=== PATIENT | female | born 1995 | race Caucasian/White ===

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

== ENCOUNTER 2017-09-22 18:47 | Emergency (ER) | payer OTHER ==
[2017-09-22 19:01] VITALS: RESP 18
[2017-09-22] MEDS ORDERED: SODIUM CHLORIDE 0.9% 1,000 ML IV STA (19:44)
[2017-09-22] MEDS ORDERED: ONDANSETRON 4 MG/2 ML VIAL IVP STA (19:44)
--- NOTE | 2017-09-22 19:49 | ED ---
Nausea/Vomiting/Diarrhea HPI - General Chief complaint: Nausea/Vomiting/Diarrhea Stated complaint: nausea, dizziness Time Seen by Provider: 09/22/17 19:23 Source: patient, RN notes reviewed, old records reviewed Mode of arrival: ambulatory Limitations: no limitations - History of Present Illness Initial comments: 22-year-old female presents emergency Department chief complaint of nausea and dizziness. Patient is a mild abdominal pain. Patient is also concerned that her IUD was not placed. She could not feel the strings. Denies any fevers or chills. No other symptoms. No actual vomiting episodes.Patient denies any recent fever, chills, shortness of breath, chest pain, back pain, vomiting, numbness or tingling, dysuria or hematuria, constipation or diarrhea, headaches or visual changes, or any other current symptoms - Related Data Home Medications Medication Instructions Recorded Confirmed Pnv,Calcium 72/Iron/Folic Acid 1 tab PO DAILY 05/05/16 12/06/16 [ Plus Tablet] Previous Rx's Medication Instructions Recorded Acetaminophen-Codeine 300-30mg 1 - 2 each PO Q4HR PRN #40 tab 12/09/16 [Tylenol w/codeine #3] Ibuprofen [Motrin] 600 mg PO Q6HR PRN #40 tab 12/09/16 Ondansetron Odt [Zofran Odt] 4 mg PO Q8HR PRN #12 tab 09/22/17 Allergies Allergy/AdvReac Type Severity Reaction Status Date / Time Sulfa (Sulfonamide Allergy Rash/Hives Verified 09/22/17 19:01 Antibiotics) sulfamethoxazole Allergy Rash/Hives Verified 09/22/17 19:01 [From Bactrim] trimethoprim [From Bactrim] Allergy Rash/Hives Verified 09/22/17 19:01 Review of Systems ROS Statement: Those systems with pertinent positive or pertinent negative responses have been documented in the HPI. ROS Other: All systems not noted in ROS Statement are negative. 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 Alert and oriented. No acute distress. Limitations: no limitations General appearance: alert, in no apparent distress Head exam: Present: atraumatic, normocephalic, normal inspection Eye exam: Present: normal appearance, PERRL, EOMI. Absent: scleral icterus, conjunctival injection, periorbital swelling ENT exam: Present: normal exam, mucous membranes moist Neck exam: Present: normal inspection. Absent: tenderness, meningismus, lymphadenopathy Respiratory exam: Present: normal lung sounds bilaterally. Absent: respiratory distress, wheezes, rales, rhonchi, stridor Cardiovascular Exam: Present: regular rate, normal rhythm, normal heart sounds. Absent: systolic murmur, diastolic murmur, rubs, gallop, clicks GI/Abdominal exam: Present: soft, normal bowel sounds. Absent: distended, tenderness, guarding, rebound, rigid External exam: Present: normal external exam Speculum exam: Present: normal speculum exam (IUD strings are in place.). Absent: vaginal discharge By manual exam: Present: normal by manual exam Extremities exam: Present: normal inspection, full ROM, normal capillary refill. Absent: tenderness, pedal edema, joint swelling, calf tenderness Back exam: Present: normal inspection Neurological exam: Present: alert, oriented X3, CN II-XII intact Psychiatric exam: Present: normal affect, normal mood Skin exam: Present: warm, dry, intact, normal color. Absent: rash Course Vital Signs 09/22/17 18:59 Temperature 98.1 F Pulse Rate 90 Respiratory 18 Rate Blood Pressure 103/61 O2 Sat by Pulse 97 Oximetry Medical Decision Making - Medical Decision Making 22-year-old Female presents emergency Department with a chief complaint of nausea and dizziness. Patient has no chest pain or symptoms. No abdominal pain or tenderness also concerned that her IUD is out of place. At this time patient's labwork was reviewed and unremarkable. No tenderness on exam. IUD is in place on pelvic exam. Evidence of strength. - Lab Data Result diagrams: 09/22/17 18:58 09/22/17 18:58 Lab Results 09/22/17 09/22/17 09/22/17 Range/Units 18:58 18:58 18:58 WBC 9.2 (4.0-11.0) k/uL RBC 5.40 (3.80-5.40) m/uL Hgb 15.3 (11.4-16.0) gm/dL Hct 45.5 (34.0-46.0) % MCV 84.4 (80.0-100.0) fL MCH 28.4 (25.0-35.0) pg MCHC 33.6 (31.0-37.0) g/dL RDW 12.4 (11.5-15.5) % Plt Count 296 (150-450) k/uL Neutrophils % 53 % Lymphocytes % 34 % Monocytes % 6 % Eosinophils % 4 % Basophils % 1 % Neutrophils # 4.9 (1.3-7.7) k/uL Lymphocytes # 3.2 (1.0-4.8) k/uL Monocytes # 0.5 (0-1.0) k/uL Eosinophils # 0.4 (0-0.7) k/uL Basophils # 0.1 (0-0.2) k/uL Sodium 141 (137-145) mmol/L Potassium 4.3 (3.5-5.1) mmol/L Chloride 109 H (98-107) mmol/L Carbon Dioxide 23 (22-30) mmol/L Anion Gap 9 mmol/L BUN 12 (7-17) mg/dL Creatinine 0.70 (0.52-1.04) mg/dL Est GFR (CKD-EPI)AfAm >90 (>60 ml/min/1.73 sqM) Est GFR (CKD-EPI)NonAf >90 (>60 ml/min/1.73 sqM) Glucose 85 (74-99) mg/dL Calcium 9.7 (8.4-10.2) mg/dL Total Bilirubin 0.6 (0.2-1.3) mg/dL AST 27 (14-36) U/L ALT 26 (9-52) U/L Alkaline Phosphatase 67 (38-126) U/L Total Protein 7.6 (6.3-8.2) g/dL Albumin 4.6 (3.5-5.0) g/dL Amylase 55 (30-110) U/L Lipase 82 (23-300) U/L Urine Color Urine Appearance (Clear) Urine pH (5.0-8.0) Ur Specific [place] (1.001-1.035) Urine Protein (Negative) Urine Glucose (UA) (Negative) Urine Ketones (Negative) Urine Blood (Negative) Urine Nitrite (Negative) Urine Bilirubin (Negative) Urine Urobilinogen (<2.0) mg/dL Ur Leukocyte Esterase (Negative) Urine HCG, Qual Not Detected (Not Detectd) 09/22/17 Range/Units 18:58 WBC (4.0-11.0) k/uL RBC (3.80-5.40) m/uL Hgb (11.4-16.0) gm/dL Hct (34.0-46.0) % MCV (80.0-100.0) fL MCH (25.0-35.0) pg MCHC (31.0-37.0) g/dL RDW (11.5-15.5) % Plt Count (150-450) k/uL Neutrophils % % Lymphocytes % % Monocytes % % Eosinophils % % Basophils % % Neutrophils # (1.3-7.7) k/uL Lymphocytes # (1.0-4.8) k/uL Monocytes # (0-1.0) k/uL Eosinophils # (0-0.7) k/uL Basophils # (0-0.2) k/uL Sodium (137-145) mmol/L Potassium (3.5-5.1) mmol/L Chloride (98-107) mmol/L Carbon Dioxide (22-30) mmol/L Anion Gap mmol/L BUN (7-17) mg/dL Creatinine (0.52-1.04) mg/dL Est GFR (CKD-EPI)AfAm (>60 ml/min/1.73 sqM) Est GFR (CKD-EPI)NonAf (>60 ml/min/1.73 sqM) Glucose (74-99) mg/dL Calcium (8.4-10.2) mg/dL Total Bilirubin (0.2-1.3) mg/dL AST (14-36) U/L ALT (9-52) U/L Alkaline Phosphatase (38-126) U/L Total Protein (6.3-8.2) g/dL Albumin (3.5-5.0) g/dL Amylase (30-110) U/L Lipase (23-300) U/L Urine Color Yellow Urine Appearance Clear (Clear) Urine pH 5.5 (5.0-8.0) Ur Specific [place] 1.020 (1.001-1.035) Urine Protein Negative (Negative) Urine Glucose (UA) Negative (Negative) Urine Ketones Negative (Negative) Urine Blood Negative (Negative) Urine Nitrite Negative (Negative) Urine Bilirubin Negative (Negative) Urine Urobilinogen <2.0 (<2.0) mg/dL Ur Leukocyte Esterase Negative (Negative) Urine HCG, Qual (Not Detectd) 09/22/17 21:05 EKG performed at [address] [facility] signs regarding with sinus arrhythmia. Ventricular rate of 57 bpm. Was 42 ms. QS ration 86 ms. QT QTc is 412/401 ms. - Radiology Data Radiology results: report reviewed Disposition Clinical Impression: Nausea, Dizziness, IUD (intrauterine device) in place Disposition: HOME SELF-CARE Condition: Good Instructions: Acute Nausea and Vomiting (ED) Additional Instructions: Patient is to rest, remain hydrated. Follow-up with primary care physician. Return to the emergency department if any alarming signs or symptoms occur. Prescriptions: Ondansetron Odt [Zofran Odt] 4 mg PO Q8HR PRN #12 tab PRN Reason: Nausea Is patient prescribed a controlled substance at d/c from ED?: No When asked, does pt state using other controlled substances?: No If prescribed controlled substance>3 days was MAPS reviewed?: No If opioid is for acute pain is fill amount 7 days or less?: No If Rx opioid, was Start Talking consent form obtained?: No Referrals: Asael Montiel DO [Primary Care Provider] - 1-2 days Time of Disposition: 21:06
[2017-09-22 20:04] LABS: Appearance,Urine Clear (Clear); Bilirubin,Urine Negative (Negative); Blood,Urine Negative (Negative); Color,Urine Yellow; Glucose,Urine (UA) Negative (Negative); Ketones,Urine Negative (Negative); Leukocyte Esterase,Urine Negative (Negative); Nitrite,Urine Negative (Negative); PH, Urine 5.5 (5.0-8.0); Protein,Urine Negative (Negative); Urobilinogen,Urine <2.0 mg/dL (<2.0)
[2017-09-22 20:05] LABS: Basophils # (A) 0.1 k/uL (0-0.2); Basophils % (A) 1 %; Eosinophils # (A) 0.4 k/uL (0-0.7); Eosinophils % (A) 4 %; HCT 45.5 % (34.0-46.0); HGB 15.3 gm/dL (11.4-16.0); Lymphocytes # (A) 3.2 k/uL (1.0-4.8); Lymphocytes % (A) 34 %; MCH 28.4 pg (25.0-35.0); MCHC 33.6 g/dL (31.0-37.0); MCV 84.4 fL (80.0-100.0); Mean Platelet Volume 6.7; Monocytes # (A) 0.5 k/uL (0-1.0); Monocytes % (A) 6 %; Neutrophils # (A) 4.9 k/uL (1.3-7.7); Neutrophils % (A) 53 %; Platelet Count 296 k/uL (150-450); RDW 12.4 % (11.5-15.5); WBC 9.2 k/uL (4.0-11.0)
[2017-09-22 20:18] LABS: ALT 26 U/L (9-52); AST 27 U/L (14-36); Albumin 4.6 g/dL (3.5-5.0); Alkaline Phosphatase 67 U/L (38-126); Amylase 55 U/L (30-110); Anion Gap 9 mmol/L; Blood Urea Nitrogen 12 mg/dL (7-17); Calcium 9.7 mg/dL (8.4-10.2); Carbon Dioxide 23 mmol/L (22-30); Chloride 109 mmol/L (98-107); Glucose 85 mg/dL (74-99); Lipase 82 U/L (23-300); Potassium 4.3 mmol/L (3.5-5.1); Sodium 141 mmol/L (137-145); Total Bilirubin 0.6 mg/dL (0.2-1.3); Total Protein 7.6 g/dL (6.3-8.2)
[2017-09-22] MEDS ORDERED: FAMOTIDINE 20 MG/2 ML VIAL IV STA (20:19)
[2017-09-22 21:18] VITALS: BP 127/87; PULSE 87; TEMP 97.4
== END 2017-09-22 21:17 | disposition home or self-care (01) ==
LOC: EC 18:47
DX: R11.0 Nausea (principal); R42 Dizziness and giddiness; Z97.5 Presence of (intrauterine) contraceptive device; I49.8 Other specified cardiac arrhythmias; R10.9 Unspecified abdominal pain; Z88.1 Allergy status to other antibiotic agents; Z88.2 Allergy status to sulfonamides
CPT/HCPCS: 36415; 93005; 80053; 82150; 83690; 85025; 81003; 81025; 99284; 96374; 96375; 96361; J2405

== ENCOUNTER 2017-12-02 22:17 | Emergency (ER) | payer OTHER ==
[2017-12-03 00:28] LABS: Appearance,Urine Turbid (Clear); Bilirubin,Urine Negative (Negative); Blood,Urine Large (Negative); Color,Urine Red; Glucose,Urine (UA) Negative (Negative); Ketones,Urine Trace (Negative); Leukocyte Esterase,Urine Large (Negative); Mucus,Urine Occasional /hpf; Nitrite,Urine Negative (Negative); PH, Urine 6.5 (5.0-8.0); Protein,Urine 2+ (Negative); RBC,Urine >182 /hpf (0-5); WBC,Urine 54 /hpf (0-5)
--- NOTE | 2017-12-03 00:39 | ED ---
General Adult HPI - General Chief complaint: Abdominal Pain Stated complaint: female Time Seen by Provider: 12/02/17 22:34 Source: patient, RN notes reviewed Mode of arrival: ambulatory Limitations: no limitations - History of Present Illness Initial comments: 22-year-old female presents to the emergency department for a chief complaint of urinary symptoms times one week. Patient states it initially started out as burning and itching in the vulvar area. Patient states she contacted her doctor who treated her for a yeast infection. However patient denies any discharge. She states she is having burning with urination as well as suprapubic pain. Patient states she is having urinary frequency as well as urgency. Patient does admit to a history of kidney stones but denies any back pain at this time. She denies any pain consistent with past kidney stones. Patient denies any fevers or chills at home. Patient has no other complaints at this time including shortness of breath, chest pain, abdominal pain, nausea or vomiting, headache, or visual changes. - Related Data Home Medications Medication Instructions Recorded Confirmed Acetaminophen Tab [Tylenol Tab] 650 mg PO Q6H PRN 12/02/17 12/02/17 Ascorbic Acid [Vitamin C] 1,000 mg PO DAILY 12/02/17 12/02/17 Cyanocobalamin (Vitamin B-12) 2,500 mcg PO DAILY 12/02/17 12/02/17 [Vitamin B12] Previous Rx's Medication Instructions Recorded Cephalexin [Keflex] 500 mg PO Q6HR 10 Days cap 12/03/17 Allergies Allergy/AdvReac Type Severity Reaction Status Date / Time Sulfa (Sulfonamide Allergy Rash/Hives Verified 12/02/17 23:05 Antibiotics) sulfamethoxazole Allergy Rash/Hives Verified 12/02/17 23:05 [From Bactrim] trimethoprim [From Bactrim] Allergy Rash/Hives Verified 12/02/17 23:05 Review of Systems ROS Statement: Those systems with pertinent positive or pertinent negative responses have been documented in the HPI. ROS Other: All systems not noted in ROS Statement are negative. 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 History of Any Multi-Drug Resistant Organisms: None Reported Past Surgical History: Orthopedic Surgery Additional Past Surgical History / Comment(s): right foot Past Anesthesia/Blood Transfusion Reactions: No Reported Reaction Past Psychological History: Anxiety Smoking Status: Never smoker Past Alcohol Use History: None Reported Past Drug Use History: None Reported - Past Family History Mother Family Medical History: No Reported History General Exam Limitations: no limitations General appearance: alert, in no apparent distress Head exam: Present: atraumatic, normocephalic, normal inspection Eye exam: Present: normal appearance, PERRL, EOMI. Absent: scleral icterus, conjunctival injection, periorbital swelling ENT exam: Present: normal exam, mucous membranes moist Neck exam: Present: normal inspection, full ROM. Absent: tenderness, meningismus, lymphadenopathy Respiratory exam: Present: normal lung sounds bilaterally. Absent: respiratory distress, wheezes, rales, rhonchi, stridor Cardiovascular Exam: Present: regular rate, normal rhythm, normal heart sounds. Absent: systolic murmur, diastolic murmur, rubs, gallop, clicks GI/Abdominal exam: Present: soft, tenderness (suprapubic tenderness without rebound or guarding. No tenderness in the rest of the abdomen including RLQ, LLQ, LUQ, RUQ), normal bowel sounds. Absent: distended, guarding, rebound, rigid Course Vital Signs 12/02/17 22:54 Temperature 98.2 F Pulse Rate 65 Respiratory 16 Rate Blood Pressure 120/63 O2 Sat by Pulse 99 Oximetry Medical Decision Making - Medical Decision Making 22-year-old female presents to the emergency department for a chief complaint of dysuria, urinary frequency, and urinary urgency times one week. Patient was treated for a yeast infection but denies any vaginal discharge. Patient denies fevers or chills at home. Patient denies any back pain. She does admit to suprapubic pain and tenderness on exam. No tenderness in the remainder of the abdomen. Patient is afebrile in the emergency department with a temperature of 98.2 and a pulse rate of 65. Patient is well-appearing and does not appear toxic. She is sitting up in bed and communicative. Urinalysis shows large blood with large leukocyte esterase and 54 white cells. Culture sent. I did discuss possibility of STDs causing these symptoms. However, patient denies any chance of this. I did offer empiric treatment to patient but she would rather follow up outpatient for this. Patient will be treated for a urinary tract infection. She is to return if she has any worsening pain or worsening symptoms. She is to return if she has any fevers or chills. She will follow up with primary care in 1-[address] Shen - Lab Data Lab Results 12/02/17 12/02/17 Range/Units 23:50 23:50 Urine Color Red Urine Appearance Turbid H (Clear) Urine pH 6.5 (5.0-8.0) Ur Specific [place] 1.030 (1.001-1.035) Urine Protein 2+ H (Negative) Urine Glucose (UA) Negative (Negative) Urine Ketones Trace H (Negative) Urine Blood Large H (Negative) Urine Nitrite Negative (Negative) Urine Bilirubin Negative (Negative) Urine Urobilinogen 3.0 (<2.0) mg/dL Ur Leukocyte Esterase Large H (Negative) Urine RBC >182 H (0-5) /hpf Urine WBC 54 H (0-5) /hpf Urine Mucus Occasional H (None) /hpf Urine HCG, Qual Not Detected (Not Detectd) Disposition Clinical Impression: Urinary tract infection Disposition: HOME SELF-CARE Condition: Good Instructions: Urinary Tract Infection in Women (ED) Additional Instructions: Please take antibiotic as directed. Please follow up with primary care in 1-2 days. Return to the emergency department if you have any worsening symptoms or fevers/chills Prescriptions: Cephalexin [Keflex] 500 mg PO Q6HR 10 Days cap Is patient prescribed a controlled substance at d/c from ED?: No Referrals: Asael Montiel DO [Primary Care Provider] - 1-2 days Time of Disposition: 00:46
[2017-12-03] MEDS ORDERED: CEPHALEXIN 500MG STARTER PACK 4 CAP BTL PO STA (00:55)
[2017-12-03 01:04] VITALS: BP 129/66; PULSE 66; RESP 18; TEMP 98.1
== END 2017-12-03 01:06 | disposition home or self-care (01) ==
LOC: EC 22:17
DX: N39.0 Urinary tract infection, site not specified (principal); Z88.2 Allergy status to sulfonamides; Z87.442 Personal history of urinary calculi
CPT/HCPCS: 81001; 81025; 87086; 99284

== ENCOUNTER 2020-09-11 21:06 | Emergency (ER) | payer OTHER ==
[2020-09-11 21:23] VITALS: TEMP 98.7
[2020-09-11] MEDS ORDERED: SODIUM CHLORIDE 0.9% 1,000 ML IV STA (21:25)
[2020-09-11] MEDS ORDERED: ONDANSETRON 4 MG/2 ML VIAL IVP STA (21:25)
--- NOTE | 2020-09-11 21:39 | ED ---
Nausea/Vomiting/Diarrhea HPI - General Chief complaint: Nausea/Vomiting/Diarrhea Stated complaint: Nausea Time Seen by Provider: 09/11/20 21:24 Source: patient Mode of arrival: wheelchair Limitations: no limitations - History of Present Illness Initial comments: This patient is a 25-year-old woman who presents to be evaluated for nausea vomiting and abdominal pain. Patient had been in her usual state of health although feeling a touch constipated over the weekend. On Tuesday she took a stool softener. She did end up having bowel movement but after that states she started having nausea and vomiting. She has had nausea and vomiting the past few days as well. In addition over the past 2 days she has had diffuse abdominal pain that is been intermittent and feels like a twisting sensation. She states it gets worse with taking any oral intake. She did think that she may have food poisoning. She has not seen any hematemesis or coffee-ground emesis. MD complaint: nausea, vomiting, abdominal pain Onset/Timin -: days(s) Description of Vomiting: food contents Associated Abdominal Pain: Yes Location: diffuse Radiation: none Severity: mild Quality: other ("twisting") Consistency: intermittent Improves with: none Worsens with: none Context: possible food poisoning Associated Symptoms: nausea/vomiting - Related Data Home Medications Medication Instructions Recorded Confirmed Acetaminophen Tab [Tylenol Tab] 650 mg PO Q6H PRN 12/02/17 12/02/17 Ascorbic Acid [Vitamin C] 1,000 mg PO DAILY 12/02/17 12/02/17 Cyanocobalamin (Vitamin B-12) 2,500 mcg PO DAILY 12/02/17 12/02/17 [Vitamin B12] Previous Rx's Medication Instructions Recorded Cephalexin [Keflex] 500 mg PO Q6HR 10 Days cap 12/03/17 Allergies Allergy/AdvReac Type Severity Reaction Status Date / Time Sulfa (Sulfonamide Allergy Rash/Hives Verified 09/11/20 21:22 Antibiotics) sulfamethoxazole Allergy Rash/Hives Verified 09/11/20 21:22 [From Bactrim] trimethoprim [From Bactrim] Allergy Rash/Hives Verified 09/11/20 21:22 Review of Systems ROS Statement: Those systems with pertinent positive or pertinent negative responses have been documented in the HPI. ROS Other: All systems not noted in ROS Statement are negative. Constitutional: Denies: fever, chills Respiratory: Denies: cough, dyspnea Cardiovascular: Denies: chest pain, palpitations Gastrointestinal: Reports: as per HPI, abdominal pain, nausea, vomiting, constipation. 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 Absent: scleral icterus, conjunctival injection ENT exam: Present: normal oropharynx Neck exam: Present: normal inspection Respiratory exam: Present: normal lung sounds bilaterally. Absent: respiratory distress, wheezes, rales, rhonchi, stridor Cardiovascular Exam: Present: regular rate, normal rhythm, normal heart sounds. Absent: systolic murmur, diastolic murmur, rubs, gallop GI/Abdominal exam: Present: soft. Absent: distended, tenderness, guarding, rebound, rigid, mass, pulsatile mass, hernia Extremities exam: Present: normal inspection, normal capillary refill. Absent: pedal edema, calf tenderness Back exam: Present: normal inspection. Absent: CVA tenderness (R), CVA tenderness (L) Neurological exam: Present: alert Skin exam: Present: warm, dry, intact, normal color. Absent: rash Course Vital Signs 09/11/20 09/11/20 21:18 22:22 Temperature 98.7 F Pulse Rate 98 78 Respiratory 18 18 Rate Blood Pressure 115/68 126/62 O2 Sat by Pulse 99 97 Oximetry Medical Decision Making - Lab Data Result diagrams: 09/11/20 21:32 09/11/20 21:32 Lab Results 09/11/20 09/11/20 09/11/20 Range/Units 21:32 21:32 21:32 WBC 13.0 H (3.8-10.6) k/uL RBC 4.76 (3.80-5.40) m/uL Hgb 14.2 (11.4-16.0) gm/dL Hct 40.1 (34.0-46.0) % MCV 84.2 (80.0-100.0) fL MCH 30.0 (25.0-35.0) pg MCHC 35.6 (31.0-37.0) g/dL RDW 12.1 (11.5-15.5) % Plt Count 268 (150-450) k/uL MPV 7.0 Neutrophils % 72 % Lymphocytes % 20 % Monocytes % 4 % Eosinophils % 2 % Basophils % 1 % Neutrophils # 9.4 H (1.3-7.7) k/uL Lymphocytes # 2.7 (1.0-4.8) k/uL Monocytes # 0.6 (0-1.0) k/uL Eosinophils # 0.3 (0-0.7) k/uL Basophils # 0.1 (0-0.2) k/uL Sodium (137-145) mmol/L Potassium (3.5-5.1) mmol/L Chloride (98-107) mmol/L Carbon Dioxide (22-30) mmol/L Anion Gap mmol/L BUN (7-17) mg/dL Creatinine (0.52-1.04) mg/dL Est GFR (CKD-EPI)AfAm (>60 ml/min/1.73 sqM) Est GFR (CKD-EPI)NonAf (>60 ml/min/1.73 sqM) Glucose (74-99) mg/dL Calcium (8.4-10.2) mg/dL Total Bilirubin (0.2-1.3) mg/dL AST (14-36) U/L ALT (4-34) U/L Alkaline Phosphatase (38-126) U/L C-Reactive Protein (<1.0) mg/dL Total Protein (6.3-8.2) g/dL Albumin (3.5-5.0) g/dL Amylase (30-110) U/L Lipase (23-300) U/L Urine Color Yellow Urine Appearance Clear (Clear) Urine pH 5.5 (5.0-8.0) Ur Specific [place] 1.032 (1.001-1.035) Urine Protein Trace H (Negative) Urine Glucose (UA) Negative (Negative) Urine Ketones Negative (Negative) Urine Blood Negative (Negative) Urine Nitrite Negative (Negative) Urine Bilirubin Negative (Negative) Urine Urobilinogen 3.0 (<2.0) mg/dL Ur Leukocyte Esterase Negative (Negative) Urine HCG, Qual Detected (Not Detectd) 09/11/20 Range/Units 21:32 WBC (3.8-10.6) k/uL RBC (3.80-5.40) m/uL Hgb (11.4-16.0) gm/dL Hct (34.0-46.0) % MCV (80.0-100.0) fL MCH (25.0-35.0) pg MCHC (31.0-37.0) g/dL RDW (11.5-15.5) % Plt Count (150-450) k/uL MPV Neutrophils % % Lymphocytes % % Monocytes % % Eosinophils % % Basophils % % Neutrophils # (1.3-7.7) k/uL Lymphocytes # (1.0-4.8) k/uL Monocytes # (0-1.0) k/uL Eosinophils # (0-0.7) k/uL Basophils # (0-0.2) k/uL Sodium 136 L (137-145) mmol/L Potassium 3.5 (3.5-5.1) mmol/L Chloride 105 (98-107) mmol/L Carbon Dioxide 23 (22-30) mmol/L Anion Gap 8 mmol/L BUN 9 (7-17) mg/dL Creatinine 0.60 (0.52-1.04) mg/dL Est GFR (CKD-EPI)AfAm >90 (>60 ml/min/1.73 sqM) Est GFR (CKD-EPI)NonAf >90 (>60 ml/min/1.73 sqM) Glucose 101 H (74-99) mg/dL Calcium 9.4 (8.4-10.2) mg/dL Total Bilirubin 0.6 (0.2-1.3) mg/dL AST 25 (14-36) U/L ALT 16 (4-34) U/L Alkaline Phosphatase 47 (38-126) U/L C-Reactive Protein 0.7 (<1.0) mg/dL Total Protein 6.8 (6.3-8.2) g/dL Albumin 4.1 (3.5-5.0) g/dL Amylase 44 (30-110) U/L Lipase 80 (23-300) U/L Urine Color Urine Appearance (Clear) Urine pH (5.0-8.0) Ur Specific [place] (1.001-1.035) Urine Protein (Negative) Urine Glucose (UA) (Negative) Urine Ketones (Negative) Urine Blood (Negative) Urine Nitrite (Negative) Urine Bilirubin (Negative) Urine Urobilinogen (<2.0) mg/dL Ur Leukocyte Esterase (Negative) Urine HCG, Qual (Not Detectd) Disposition Clinical Impression: Nausea & vomiting Disposition: HOME SELF-CARE Condition: Good Instructions (If sedation given, give patient instructions): Nausea and Vomiting in (ED) Is patient prescribed a controlled substance at d/c from ED?: No Referrals: Asael Montiel DO [Primary Care Provider] - 1-2 days
[2020-09-11 21:58] LABS: Basophils # (A) 0.1 k/uL (0-0.2); Basophils % (A) 1 %; Eosinophils # (A) 0.3 k/uL (0-0.7); Eosinophils % (A) 2 %; HCT 40.1 % (34.0-46.0); HGB 14.2 gm/dL (11.4-16.0); Lymphocytes # (A) 2.7 k/uL (1.0-4.8); Lymphocytes % (A) 20 %; MCHC 35.6 g/dL (31.0-37.0); MCV 84.2 fL (80.0-100.0); Monocytes # (A) 0.6 k/uL (0-1.0); Monocytes % (A) 4 %; Neutrophils # (A) 9.4 k/uL (1.3-7.7); Neutrophils % (A) 72 %; Platelet Count 268 k/uL (150-450); RBC 4.76 m/uL (3.80-5.40); RDW 12.1 % (11.5-15.5)
[2020-09-11 22:13] LABS: ALT 16 U/L (4-34); AST 25 U/L (14-36); African American GFR (CKD) >90 (>60 ml/min/1.73 sqM); Albumin 4.1 g/dL (3.5-5.0); Alkaline Phosphatase 47 U/L (38-126); Amylase 44 U/L (30-110); Anion Gap 8 mmol/L; Appearance,Urine Clear (Clear); Bilirubin,Urine Negative (Negative); Blood Urea Nitrogen 9 mg/dL (7-17); Blood,Urine Negative (Negative); C Reactive Protein 0.7 mg/dL (<1.0); Calcium 9.4 mg/dL (8.4-10.2); Carbon Dioxide 23 mmol/L (22-30); Chloride 105 mmol/L (98-107); Color,Urine Yellow; Glucose 101 mg/dL (74-99); Glucose,Urine (UA) Negative (Negative); Ketones,Urine Negative (Negative); Leukocyte Esterase,Urine Negative (Negative); Lipase 80 U/L (23-300); Nitrite,Urine Negative (Negative); Non-African American GFR(CKD) >90 (>60 ml/min/1.73 sqM); PH, Urine 5.5 (5.0-8.0); Potassium 3.5 mmol/L (3.5-5.1); Protein,Urine Trace (Negative); Sodium 136 mmol/L (137-145); Specific Gravity,Urine 1.032 (1.001-1.035); Total Bilirubin 0.6 mg/dL (0.2-1.3); Total Protein 6.8 g/dL (6.3-8.2)
[2020-09-11 23:41] VITALS: BP 108/71; PULSE 71; RESP 20
== END 2020-09-11 23:41 | disposition home or self-care (01) ==
LOC: EC 21:06
DX: R11.2 Nausea with vomiting, unspecified (principal)
CPT/HCPCS: 36415; 80053; 82150; 83690; 85025; 86140; 81003; 81025; 84702; 99284; 96374; 96361 ×2; J2405

== ENCOUNTER → 2021-03-04 | Outpatient (CLI) | payer OTHER ==
--- NOTE | 2021-03-04 11:55 | US ---
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 Patient states she is struggling to lose weight . TECHNIQUE: Multiple sonographic images of the thyroid gland are obtained. FINDINGS: GLAND SIZE: Right Lobe: 4.4 x 1.4 x 1.5 cm Overall Parenchyma: homogenous Left Lobe: 4.6 x 1.2 x 1.4 cm Overall Parenchyma: homogeneous Isthmus Thickness: 0.20 cm NODULES RIGHT: # of nodules measured on right: 0 LEFT: # of nodules measured on left: 0 ISTHMUS: # of nodules measured in the isthmus: 0 Bilateral neck scanned, no evidence of lymphadenopathy. IMPRESSION: Normal-sized thyroid gland. Normal homogeneous appearance. No discrete nodule seen.
== END | disposition home or self-care (01) ==
LOC: RADUSWWP 10:01
PROVIDERS: ATTEND Family Medicine
DX: E04.9 Nontoxic goiter, unspecified (principal); R63.4 Abnormal weight loss
CPT/HCPCS: 76536

== ENCOUNTER 2021-10-14 02:48 | Emergency (ER) | payer OTHER ==
[2021-10-14 02:54] VITALS: BP 135/54; PULSE 99; TEMP 98.8
--- NOTE | 2021-10-14 03:07 | ED ---
General Adult HPI - General Chief complaint: Abdominal Pain Stated complaint: Abd Pain Time Seen by Provider: 10/14/21 02:55 Source: patient, RN notes reviewed Mode of arrival: ambulatory - History of Present Illness Initial comments: This is a 26-year-old female who presents to the emergency Department with complaints of generalized abdominal discomfort accompanied by rectal pressure. Patient states discomfort began during the day yesterday but worsened throughout the night. Patient states she had did not have a good bowel movement for a few days and to stool softener, followed by magnesium citrate, followed by a laxative. States she is so uncomfortable she is not able to even sit on the commode. Patient states she took Motrin prior to arrival with no improvement. States she is nauseous, but not vomiting. Reports similar situation 2-3 weeks ago, however the pain was not this intense. Denies fever, chills, headache, chest pain, difficulty breathing, diarrhea, or dysuria. - Related Data Home Medications Medication Instructions Recorded Confirmed Acetaminophen Tab [Tylenol Tab] 650 mg PO Q6H PRN 12/02/17 12/02/17 Ascorbic Acid [Vitamin C] 1,000 mg PO DAILY 12/02/17 12/02/17 Cyanocobalamin (Vitamin B-12) 2,500 mcg PO DAILY 12/02/17 12/02/17 [Vitamin B12] Previous Rx's Medication Instructions Recorded Cephalexin [Keflex] 500 mg PO Q6HR 10 Days cap 12/03/17 Allergies Allergy/AdvReac Type Severity Reaction Status Date / Time Sulfa (Sulfonamide Allergy Rash/Hives Verified 10/14/21 02:54 Antibiotics) sulfamethoxazole Allergy Rash/Hives Verified 10/14/21 02:54 [From Bactrim] trimethoprim [From Bactrim] Allergy Rash/Hives Verified 10/14/21 02:54 Review of Systems ROS Statement: Those systems with pertinent positive or pertinent negative responses have been documented in the HPI. ROS Other: All systems not noted in ROS Statement are negative. 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 Initial temperature 98.8, pulse 99, respirations 19, blood pressure 135/54, pulse ox 99% on room air.) ENT exam: Present: normal exam, normal oropharynx, mucous membranes moist Respiratory exam: Present: normal lung sounds bilaterally. Absent: respiratory distress, wheezes, rales, rhonchi, stridor Cardiovascular Exam: Present: regular rate, normal rhythm, normal heart sounds. Absent: systolic murmur, diastolic murmur, rubs, gallop, clicks GI/Abdominal exam: Present: soft, normal bowel sounds. Absent: distended, tenderness, guarding, rebound, rigid Back exam: Present: CVA tenderness (R), CVA tenderness (L) Neurological exam: Present: alert, oriented X3, CN II-XII intact Psychiatric exam: Present: anxious Skin exam: Present: warm, dry, intact, normal color. Absent: rash Course Vital Signs 10/14/21 10/14/21 02:50 04:36 Temperature 98.8 F Pulse Rate 99 Respiratory 19 16 Rate Blood Pressure 135/54 O2 Sat by Pulse 99 Oximetry - Reevaluation(s) Reevaluation #1: 10/14/21 04:00 Upon reassessment, patient is resting more comfortably at this time. States she has had 2 bowel movements. Discussed dietary changes. Patient will be discharged home to follow up with her PCP. Questions answered, patient verbalizes understanding and agrees with this plan. Medical Decision Making - Medical Decision Making This is a 26-year-old female with no significant past medical history who presents to the emergency Department with complaints of generalized abdominal pain and constipation. Upon exam, patient is initially tearful and quite uncomfortable. Her abdomen is soft with no localized area of tenderness. Patient was given Bentyl and Zofran with improvement. KUB shows large bowel fluid levels possibly related to diarrhea. After x-ray, patient had 2 large bowel movements and is feeling much improved. She will be discharged home with instructions to increase fiber and fluids. Cautioned against excess use of stimulants and laxatives. Encouraged to follow up with PCP for a recheck. Retu rn parameters discussed in detail. Patient verbalizes understanding and agrees with this plan. Attending: Hermelinda. - Radiology Data Radiology results: report reviewed, image reviewed KUB x-ray was obtained. Report was reviewed in its entirety. Impression per Dr. Ceron is there are a few large bowel fluid levels that could relate to diarrhea. No dilated bowel. Disposition Clinical Impression: Abdominal cramping Disposition: HOME SELF-CARE Condition: Stable Instructions (If sedation given, give patient instructions): Constipation (ED), High Fiber Diet (ED) Additional Instructions: Consider adding a fiber supplement to your daily routine. May take stool softener such as Colace once daily. Avoid use of laxatives. Increase intake of water over the next few days. May take Tylenol or Motrin if needed for discomfort. Follow-up with your PCP for a recheck if constipation persists. Return to the emergency department with any new, worsening, or concerning symptoms. Is patient prescribed a controlled substance at d/c from ED?: No Referrals: Asael Montiel DO [Primary Care Provider] - 1-2 days Time of Disposition: 04:24
[2021-10-14] MEDS ORDERED: DICYCLOMINE 10 MG/ML 2 ML AMP IM STA (03:08)
[2021-10-14] MEDS ORDERED: ONDANSETRON ODT 4 MG TAB PO STA (03:08)
--- NOTE | 2021-10-14 03:44 | XR ---
EXAMINATION TYPE: XR KUB DATE OF EXAM: 10/14/2021 COMPARISON: 02/26/2016 HISTORY: Abdominal pain TECHNIQUE: 2 views upright FINDINGS: There are some large bowel fluid levels in the right side of the abdomen. No evidence of fr ee air. Lung bases are clear. No pleural effusion. No pathologic calcifications over the kidneys. IMPRESSION: There are a few large bowel fluid levels that could relate to diarrhea. No dilated bowel.
[2021-10-14 04:37] VITALS: RESP 16
== END 2021-10-14 04:37 | disposition home or self-care (01) ==
LOC: EC 02:48
DX: R10.84 Generalized abdominal pain (principal); K59.00 Constipation, unspecified; Z88.2 Allergy status to sulfonamides
CPT/HCPCS: 74018; 99284; 96372; J0500

== ENCOUNTER 2023-08-25 16:05 | Outpatient (CLI) | payer OTHER ==
[2023-08-25 17:45] LABS: Appearance,Urine Cloudy (Clear); Bacteria,Urine Few /hpf; Bilirubin,Urine Negative (Negative); Blood,Urine Negative (Negative); Color,Urine Yellow; Glucose,Urine (UA) Negative (Negative); Ketones,Urine Negative (Negative); Leukocyte Esterase,Urine Moderate (Negative); Mucus,Urine Occasional /hpf; Nitrite,Urine Negative (Negative); PH, Urine 6.5 (5.0-8.0); Protein,Urine 1+ (Negative); RBC,Urine 45 /hpf (0-5); Specific Gravity,Urine 1.041 (1.001-1.035); Squamous Epithelial Cell,Urine 12 /hpf (0-4); Urobilinogen,Urine <2.0 mg/dL (<2.0); WBC,Urine 5 /hpf (0-5)
[2023-08-25 19:36] VITALS: BP 107/62; PULSE 80; RESP 16; TEMP 98.8
--- NOTE | 2023-10-07 09:15 | P.MSEPDOC ---
Presenting Problems - Arrival Data Date of Arrival on Unit: 08/25/23 Time of Arrival on Unit: 16:05 Mode of Transport: Ambulatory - Complaint OB-Reason for Admission/Chief Complaint: Pain Comment: pt presents with complaints of lower back cramping pain that comes around to lower front that started around 3pm after pt had a bowel movement. pain was rated at 8 but now is down to 2 at this time. pt also states has just felt "yucky" all day. denies being around anyone ill. states has drank 88 oz of water today due to the heat but usually drinks half that. bm was "normal" per pt Medical History - Information : 3 Para: 1 Term: 1 : 0 Abortions: Spontaneous or Elective: 1 Number of Living Children: 1 - Gestational Age Gestational Age by MEL (wks/days): 23 Weeks and 5 Days - History Complications: Prior Review of Systems - Review of Systems Constitutional: No problems Breast: No problems ENT: No problems Cardiovascular: No problems Respiratory: No problems Gastrointestinal: No problems Genitourinary: No problems Musculoskeletal: No problems Neurological: No problems Skin: No problems Vital Signs - Temperature Temperature: 98.8 F Temperature Source: Oral - Pulse Right Pulse Rate: 80 Pulse Assessment Method: Pulse Oximetry - Respirations Respiratory Rate: 16 Oxygen Delivery Method: Room Air O2 Sat by Pulse Oximetry: 99 - Blood Pressure Right Arm Blood Pressure: 107/62 Blood Pressure Mean: 77 Blood Pressure Source: Automatic Cuff Physician Notification - Physician Notified Physician Notified Date: 08/25/23 Physician Notified Time: 16:40 Physician: Dr Virgen New Order Received: Yes (UA) - Notification Comment Comment: 1750 [address] results reviewed with Dr Virgen. discharge order received with instructions for pt to orally hydrate, pelvic rest and return with increase in pain or change in symptoms. pt advised ua shows possible kidney stone but main treatment for that is hydration. pt states is comfortable with discharge plan Maternal Triage Index - Maternal Triage Index Presenting for scheduled procedure w/no complaint: No - Stat/Priority 1 Stat Priority 1: No - Urgent/Priority 2 Urgent Priority 2: No - Prompt/Priority 3 Prompt Priority 3: No - Non-Urgent/Priority 4 Non-Urgent Priority 4: Yes Criteria Met for Priority 4: pain Disposition - Disposition OB Disposition: Discharge to home, Written follow up instructions reviewed Discharge Date: 08/25/23 Discharge Time: 18:00 I agree with the RN Medical Screening Exam: Yes Case reviewed; plan agreed upon as documented in EMR&OBIX.: Yes Diagnosis: RELATED CONDITIONS, UNSPECIFIED, SECOND TRIMESTER
== END 2023-08-25 18:00 | disposition home or self-care (01) ==
LOC: FBPOP 16:05
PROVIDERS: ATTEND Obstetrics & Gynecology Obstetrics
DX: O26.892 Other specified pregnancy related conditions, second trimester (principal); M54.50 Low back pain, unspecified; R25.2 Cramp and spasm; Z3A.23 23 weeks gestation of pregnancy; Z88.2 Allergy status to sulfonamides; Z88.1 Allergy status to other antibiotic agents
CPT/HCPCS: 81001; G0463; 99213

== ENCOUNTER 2023-11-22 18:12 | Outpatient (CLI) ==
[2023-11-22 18:57] VITALS: BP 123/64; PULSE 93; RESP 14; TEMP 97
[2023-11-22 19:04] LABS: Appearance,Urine Clear (Clear); Bilirubin,Urine Negative (Negative); Blood,Urine Negative (Negative); Color,Urine Yellow; Glucose,Urine (UA) Negative (Negative); Ketones,Urine Negative (Negative); Leukocyte Esterase,Urine Small (Negative); Mucus,Urine Occasional /hpf; Nitrite,Urine Negative (Negative); PH, Urine 6.5 (5.0-8.0); Protein,Urine Trace (Negative); RBC,Urine 2 /hpf (0-5); Specific Gravity,Urine 1.032 (1.001-1.035); Squamous Epithelial Cell,Urine 10 /hpf (0-4); Urobilinogen,Urine <2.0 mg/dL (<2.0); WBC,Urine 4 /hpf (0-5)
--- NOTE | 2023-11-25 09:31 | P.MSEPDOC ---
Presenting Problems - Arrival Data Date of Arrival on Unit: 11/22/23 Time of Arrival on Unit: 18:15 Mode of Transport: Ambulatory - Complaint OB-Reason for Admission/Chief Complaint: Visual Disturbances Medical History - Information : 2 Para: 1 Term: 1 : 0 Abortions: Spontaneous or Elective: 0 Number of Living Children: 1 - Gestational Age Gestational Age by MEL (wks/days): 36 Weeks and 3 Days Review of Systems - Review of Systems Constitutional: No problems Breast: No problems ENT: No problems Cardiovascular: No problems Respiratory: No problems Gastrointestinal: No problems Genitourinary: No problems Musculoskeletal: No problems Neurological: No problems Skin: No problems Vital Signs - Temperature Temperature: 97.0 F Temperature Source: Temporal Artery Scan - Pulse Right Brachial Pulse Rate: 93 Pulse Assessment Method: Automatic Cuff - Respirations Respiratory Rate: 14 Oxygen Delivery Method: Room Air - Blood Pressure Right Arm Blood Pressure: 123/64 Blood Pressure Mean: 83 Blood Pressure Source: Automatic Cuff Medical Screen Scoring - Assessment - Baby A Baseline FHR: 125 Heart Rate - NICHD Category: Category I (Normal) NST: Reactive Physician Notification - Physician Notified Physician Notified Date: 11/22/23 Physician Notified Time: 18:35 Physician: Gt Epperson Order Received: Yes - Notification Comment Comment: d/c home if urine wnl Maternal Triage Index - Maternal Triage Index Presenting for scheduled procedure w/no complaint: No - Stat/Priority 1 Stat Priority 1: No - Urgent/Priority 2 Urgent Priority 2: No - Prompt/Priority 3 Prompt Priority 3: No - Non-Urgent/Priority 4 Non-Urgent Priority 4: Yes Criteria Met for Priority 4: floaters Disposition - Disposition OB Disposition: Discharge to home Discharge Date: 11/22/23 Discharge Time: 19:12 I agree with the RN Medical Screening Exam: Yes Physician's MSE Comment: I have neither seen nor examined the patient. Case reviewed; plan agreed upon as documented in EMR&OBIX.: Yes Diagnosis: RELATED CONDITIONS, UNSPECIFIED, THIRD TRIMESTER
== END 2023-11-22 19:10 | disposition home or self-care (01) ==
LOC: FBPOP 18:12
PROVIDERS: ATTEND Obstetrics & Gynecology
CPT/HCPCS: 59025; 81001; 99215

== ENCOUNTER 2023-12-09 06:15 | Inpatient (IN) | payer OTHER ==
[2023-12-08 11:37] VITALS: BMI 43.4
[2023-12-09] MEDS ORDERED: miSOPROStoL 200 MCG TAB PO PRN (07:40)
[2023-12-09] MEDS ORDERED: CARBOPROST TROMETHAMINE 250 MCG/ML 1 ML AMP IM PRN (07:40)
[2023-12-09] MEDS ORDERED: TRANEXAMIC 1,000 MG/100ML-NACL 1,000 MG in EMPTY BAG 1 BAG IV PRN (07:40)
[2023-12-09] MEDS ORDERED: OXYTOCIN 10 UNIT/ML 1 ML VIAL IM PRN (07:40)
[2023-12-09] MEDS ORDERED: METHYLERGONOVINE 0.2 MG/ML 1 ML AMP IM PRN (07:40)
[2023-12-09] MEDS ORDERED: OXYTOCIN 30 UNITS/500 ML NS 30 UNIT in SALINE 1 500ML.BAG IV SCH (07:45)
[2023-12-09] MEDS: LACTATED RINGERS 1,000 ML IV ONE (07:54)
[2023-12-09] MEDS: CITRIC ACID-SODIUM CITRATE 15 ML CUP PO ONE (07:54)
[2023-12-09] MEDS: LACTATED RINGERS 1,000 ML IV SCH ×2 (07:55→10:03)
[2023-12-09] MEDS ORDERED: ONDANSETRON 4 MG/2 ML VIAL ONE (08:05)
[2023-12-09] MEDS ORDERED: ePHEDrine 50 MG/ML 1 ML VIAL ONE (08:05)
[2023-12-09] MEDS ORDERED: OXYTOCIN 30 UNITS/500 ML NS BAG IV ONE (08:05)
[2023-12-09] MEDS ORDERED: PHENYLEPHRINE-0.9% NACL SYG 1,000 MCG/10 ML SYRINGE ONE (08:05)
[2023-12-09] MEDS ORDERED: NALBUPHINE 10 MG/ML (10 ML MDV) ONE (08:05)
[2023-12-09] MEDS ORDERED: MORPHINE SULFATE (PF) 0.3 MG/0.3 ML SYR ONE (08:05)
[2023-12-09 08:20] LABS: Basophils # (A) 0.1 k/uL (0-0.2); Basophils % (A) 0 %; Eosinophils # (A) 0.1 k/uL (0-0.7); Eosinophils % (A) 1 %; HCT 36.9 % (34.0-46.0); HGB 12.3 gm/dL (11.4-16.0); Lymphocytes # (A) 2.1 k/uL (1.0-4.8); Lymphocytes % (A) 18 %; MCH 28.3 pg (25.0-35.0); MCHC 33.3 g/dL (31.0-37.0); MCV 85.1 fL (80.0-100.0); Mean Platelet Volume 8.2; Monocytes # (A) 0.6 k/uL (0-1.0); Monocytes % (A) 5 %; Neutrophils # (A) 8.6 k/uL (1.3-7.7); Neutrophils % (A) 73 %; Platelet Count 259 k/uL (150-450); RBC 4.34 m/uL (3.80-5.40); RDW 13.1 % (11.5-15.5); WBC 11.8 k/uL (3.8-10.6)
[2023-12-09] MEDS ORDERED: NALOXONE 0.4 MG/ML 1 ML VIAL IV PRN ×2 (08:51→09:11)
[2023-12-09] MEDS ORDERED: diphenhydrAMINE 50 MG/ML 1 ML VIAL IVP PRN (09:11)
[2023-12-09] MEDS ORDERED: diphenhydrAMINE 50 MG CAP PO PRN (09:11)
[2023-12-09] MEDS ORDERED: ONDANSETRON 4 MG/2 ML VIAL IVP PRN (09:11)
[2023-12-09] MEDS ORDERED: diphenhydrAMINE 25 MG CAP PO PRN (09:11)
[2023-12-09] MEDS ORDERED: ZOLPIDEM 5 MG TAB PO PRN (09:11)
--- NOTE | 2023-12-09 09:18 | P.HPOB ---
History of Present Illness H&P Date: 12/09/23 Chief Complaint: IUP at 39-0/7 weeks, history of x 1, polyhydramnios 28-year-old 3 para 1-0-1-1 at 39-0/7 weeks that presents to labor and delivery for scheduled repeat section. Patient has a history of a prior and desires repeat. Patient has been receiving routine care which has been complicated by diagnosis of polyhydramnios, amniotic fluid index of 32 at last ultrasound. Patient does note good movement occasional contractions are appreciated. Patient denies vaginal bleeding or loss of fluid. On blood work this patient is a blood type of A+, rubella status immune, hepatitis B surface engine negative, HIV negative, RPR is nonreactive, group beta strep culture is negative. 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 History of Any Multi-Drug Resistant Organisms: None Reported Past Surgical History: Section, Orthopedic Surgery Additional Past Surgical History / Comment(s): right foot SX Past Anesthesia/Blood Transfusion Reactions: No Reported Reaction Past Psychological History: Anxiety Additional Psychological History / Comment(s): NO MEDS AT THIS TIME R/T Smoking Status: Never smoker Past Alcohol Use History: None Reported Past Drug Use History: None Reported - Past Family History Mother Family Medical History: No Reported History Medications and Allergies Home Medications Medication Instructions Recorded Confirmed Type Vit No.179/Iron/Folic 1 tab PO DAILY 08/25/23 12/08/23 History [ Tablet] Allergies Allergy/AdvReac Type Severity Reaction Status Date / Time Sulfa (Sulfonamide Allergy Rash/Hives Verified 12/08/23 11:30 Antibiotics) sulfamethoxazole Allergy Rash/Hives Verified 12/08/23 11:30 [From Bactrim] trimethoprim [From Bactrim] Allergy Rash/Hives Verified 12/08/23 11:30 Exam Osteopathic Statement: *. No significant issues noted on an osteopathic structural exam other than those noted in the History and Physical/Consult. Vital Signs Temp Pulse Resp BP Pulse Ox 12/09/23 07:40 97.4 F L 72 16 133/74 98 Intake and Output 12/08/23 12/09/23 12/09/23 22:59 06:59 14:59 Other: Weight 104.326 kg Targeted physical exam is performed on this date, In general this is a well-nourished well-developed female in no acute distress, breathing is nonlabored, heart has a regular rate rhythm, abdomen is gravid, cervical exam is deferred, heart tones noted be category 1 and she is not tanika. Results Result Diagrams: 12/09/23 07:25 Abnormal Lab Results - Last 24 Hours (Table) 12/09/23 Range/Units 07:25 WBC 11.8 H (3.8-10.6) k/uL Neutrophils # 8.6 H (1.3-7.7) k/uL Assessment and Plan (1) Term Current Visit: Yes Status: Acute Code(s): Z34.90 - ENCNTR FOR SUPRVSN OF NORMAL , UNSP, UNSP TRIMESTER SNOMED Code(s): 68498628 (2) Polyhydramnios Current Visit: Yes Status: Acute Code(s): O40.9XX0 - POLYHYDRAMNIOS, UNSP TRIMESTER, NOT APPLICABLE OR UNSP SNOMED Code(s): 96676411 (3) History of section Current Visit: Yes Status: Acute Code(s): Z98.891 - HISTORY OF UTERINE SCAR FROM PREVIOUS SURGERY SNOMED Code(s): 445719147 Plan: 28-year-old 3 para 1-0-1-1 at 39-0/7 weeks that presents for repeat section. Surgery is reviewed and questions are answered. Anesthesia is in to see patient. Will proceed with repeat section
--- NOTE | 2023-12-09 09:21 | P.OP ---
Date of Procedure: 12/09/23 Preoperative Diagnosis: IUP at 39-0/7 weeks, history of x 1, desires repeat, polyhydramnios Postoperative Diagnosis: Same, occiput transverse presentation Procedure(s) Performed: Repeat section with vacuum assist Anesthesia: spinal Surgeon: Diann Virgen Patient Ambassador #1: Anupama Steiner Estimated Blood Loss (ml): 239 IV fluids (ml): 1,000 Urine output (ml): 400 (Clear yellow) Pathology: none sent Condition: stable Disposition: observation Indications for Procedure: History of x 1, polyhydramnios and patient elects repeat section Operative Findings: Viable male delivered at 831, weight of 7 pounds 14 ounces, Apgars of 8 and 9 at 1 and 5 minutes respectively. Vacuum assist to aid in delivery of the infant. 1 pop-off during delivery of . Description of Procedure: The patient was prepped and draped in the usual fashion after spinal anesthesia was administered by the anesthesia department. A Pfannenstiel incision was made and extended of the abdominal cavity without difficulty. The bladder peritoneum was elevated and incised and reflected distally. A 2 cm incision was made in the transverse plane of the lower uterine segment to enter the uterus at which time clear fluid was noted. The incision was extended in both directions using the bandage scissors. The head was encountered within the field and delivered up and through the incision with vacuum assist, where the nose and mouth were thoroughly suctioned. Remainder of the was delivered onto the surgical field where the cord was doubly clamped, cut, and the was passed for resuscitative measures with weight and Apgars as noted above. A segment of cord was then doubly clamped, cut, and set aside should cord gases become necessary. The placenta was delivered manually, intact, and was grossly normal with a grossly normal three-vessel cord. The uterus was exteriorized and the interior cavity of the uterus swept of any remaining placental and membranous fragments with a laparotomy sponge. The margins of the incision were grasped with Allis clamps and the incision closed in 2 layers. First layer was a running locking layer of 0 Vicryl from margin to margin followed by a second layer of imbricating 0 Vicryl from margin to margin. 2 areas of bleeding were appreciated, [id number] sutures were used to obtain hemostasis. Once hemostasis was achieved, the posterior cul-de-sac was suctioned with a guard and the uterine and ovarian findings are as noted above. The uterus was replaced within the abdominal cavity and the gutters swept of any remaining blood fluid or clot. The incision was again reexamined and hemostasis was noted to be excellent. Any small point of bleeding were made hemostatic with the Bovie. Once hemostasis was achieved the parietal peritoneum was loosely reapproximated. The layer of muscles were examined and made hemostatic with the Bovie. Attention was then turned to the fascia which was closed with 0 Vicryl in a running fashion from 1 lateral edge to the other. The subcutaneous tissues were irrigated, made hemostatic with the Bovie, and reapproximated with a running stitch of 30 plain catgut. The skin was reapproximated with regular surgical harry. Estimated blood loss for the case was approximately 239 mL. All sponge instrument and needle counts are correct. There were no complications. The patient tolerated the procedure well and proceeded to the recovery room in stable condition. Both mother and infant are resting comfortably in recovery.
[2023-12-09] MEDS: diphenhydrAMINE 50 MG/ML 1 ML VIAL IVP PRN (09:43)
[2023-12-09] MEDS: ACETAMINOPHEN IV (For NPO) 1,000 MG in EMPTY BAG 1 BAG IVPB PRN (10:09)
[2023-12-09] MEDS: ACETAMINOPHEN TAB 500 MG TAB PO SCH (14:11)
[2023-12-09] MEDS: IBUPROFEN 600 MG TAB PO SCH (16:35)
[2023-12-09] MEDS: METOCLOPRAMIDE 5 MG/ML 2 ML VIAL IVP PRN (17:50)
[2023-12-09] MEDS ORDERED: IBUPROFEN IV 800 MG in SODIUM CHLORIDE 0.9% 250 ML IV PRN (18:00)
[2023-12-09] MEDS ORDERED: INFLUENZA VACC (6 MOS-64 YRS) 45 MCG/0.5 ML SYRINGE IM ONE (19:30)
[2023-12-09] MEDS: SENNOSIDES-DOCUSATE SODIUM 1 EACH TAB PO SCH (23:08)
[2023-12-10] MEDS: INFLUENZA VACC HIGH-DOSE (65+) 180 MCG/0.5 ML SYRINGE IM ONE (01:58)
--- NOTE | 2023-12-10 06:21 | P.PN ---
Progress Note - Text Progress Note Date: 12/10/23 Patient doing well. Ambulating w/o paresthesia or weakness. Denies headache. Pain well controlled. Back - spinal site clean and dry POD#1 s/p w/ spinal duramorph - continue multimodal analgesia
[2023-12-10 07:04] LABS: Basophils % (A) 0 %; Eosinophils # (A) 0.2 k/uL (0-0.7); Eosinophils % (A) 1 %; HCT 31.6 % (34.0-46.0); HGB 10.5 gm/dL (11.4-16.0); Lymphocytes % (A) 17 %; MCH 28.3 pg (25.0-35.0); MCHC 33.3 g/dL (31.0-37.0); MCV 84.9 fL (80.0-100.0); Mean Platelet Volume 8.4; Monocytes # (A) 0.7 k/uL (0-1.0); Monocytes % (A) 6 %; Neutrophils # (A) 8.7 k/uL (1.3-7.7); Neutrophils % (A) 74 %; Platelet Count 221 k/uL (150-450); RBC 3.72 m/uL (3.80-5.40); RDW 13.5 % (11.5-15.5); WBC 11.7 k/uL (3.8-10.6)
--- NOTE | 2023-12-10 10:09 | P.PNOBGPC ---
Subjective - Subjective Principal diagnosis: Postop day 1, repeat section Interval history: Patient is doing well postoperatively. Nausea from yesterday has resolved. She is tolerating a regular diet without nausea or vomiting. She is ambulating and voiding without difficulty. States her pain is well-controlled. Patient reports: Reports appetite normal, Reports voiding normally, Reports pain well controlled, Reports ambulating normally [place]: doing well, nursing well Objective - Vital Signs Latest vital signs: Vital Signs Temp Pulse Resp BP Pulse Ox 12/10/23 08:00 98.2 F 72 15 103/65 97 12/10/23 05:30 15 12/10/23 04:00 97.9 F 63 16 102/60 98 12/10/23 02:00 15 12/10/23 00:00 98.1 F 59 L 19 109/59 99 12/09/23 21:36 18 12/09/23 20:00 98.1 F 79 18 111/73 97 12/09/23 18:00 18 12/09/23 16:45 98.1 F 86 16 100/57 96 12/09/23 14:00 16 12/09/23 12:00 98.2 F 78 16 101/62 96 12/09/23 11:20 85 16 115/59 98 12/09/23 11:00 98.2 F 100 16 116/66 98 12/09/23 10:45 85 16 116/56 98 12/09/23 10:19 101 H 16 132/69 97 Intake and Output 12/09/23 12/10/23 12/10/23 22:59 06:59 14:59 Intake Total 480 Output Total 300 600 Balance 180 -600 Intake: Oral 480 Output: Urine 300 600 Other: # Voids 2 - Exam Extremities: Present: normal, edema Abdomen: Present: normal appearance, soft Incision: Present: normal, dry, intact Uterus: Present: normal, firm - Labs Labs: Abnormal Lab Results - Last 24 Hours (Table) 12/10/23 Range/Units 06:12 WBC 11.7 H (3.8-10.6) k/uL RBC 3.72 L (3.80-5.40) m/uL Hgb 10.5 L (11.4-16.0) gm/dL Hct 31.6 L (34.0-46.0) % Neutrophils # 8.7 H (1.3-7.7) k/uL Assessment and Plan (1) Term Current Visit: Yes Status: Acute Code(s): Z34.90 - ENCNTR FOR SUPRVSN OF NORMAL , UNSP, UNSP TRIMESTER SNOMED Code(s): 80397244 (2) Polyhydramnios Current Visit: Yes Status: Acute Code(s): O40.9XX0 - POLYHYDRAMNIOS, UNSP TRIMESTER, NOT APPLICABLE OR UNSP SNOMED Code(s): 32333950 (3) History of section Current Visit: Yes Status: Acute Code(s): Z98.891 - HISTORY OF UTERINE SCAR FROM PREVIOUS SURGERY SNOMED Code(s): 643032155 (4) Status post section Current Visit: Yes Status: Acute Code(s): Z98.891 - HISTORY OF UTERINE SCAR FROM PREVIOUS SURGERY SNOMED Code(s): 099822465 Plan: Patient is doing well postoperatively. Will encourage increased ambulation. Continue routine postoperative care, anticipate discharge home tomorrow.
[2023-12-10 18:50] VITALS: RESP 16
--- NOTE | 2023-12-11 05:28 | P.DS ---
Providers Date of admission: 12/09/23 06:15 Expected date of discharge: 12/11/23 Attending physician: Diann Virgen Primary care physician: Dolores Moreno, NPC - Discharge Diagnosis(es) (1) Term Current Visit: Yes Status: Acute (2) Polyhydramnios Current Visit: Yes Status: Acute (3) History of section Current Visit: Yes Status: Acute (4) Status post section Current Visit: Yes Status: Acute Hospital Course: 28-year-old 3 now para 2-0-1-2 that presented to labor and delivery on 12/08 at 39-0/7 weeks for scheduled repeat section. Patient has been receiving routine care which has been complicated by diagnosis of polyhydramnios. Patient was admitted and taken back to the operating room where repeat section was completed without difficulty. For full details on the please see the dictated operative report. Patient delivered a viable male at 831 via vacuum assist, weight of 7 pounds 14 ounces, Apgars of 8 and 9 at 1 and 5 minutes respectively. Patient's postoperative course has been uneventful. On this postoperative day #1 she is ambulating and voiding without difficulty. She is tolerating a regular diet without nausea or vomiting. She states her pain is well-controlled. She denies concerns and would like discharge home. Patient Condition at Discharge: Good Plan - Discharge Summary Discharge Rx Participant: Yes New Discharge Prescriptions: No Action Vit No.179/Iron/Folic [ Tablet] 1 tab PO DAILY Discharge Medication List Vit No.179/Iron/Folic [ Tablet] 1 tab PO DAILY 08/25/23 [Histo ry] Follow up Appointment(s)/Referral(s): Diann Virgen DO [Doctor of Osteopathic Medicine] - 12/21/23 11:30 am (Post 01-18-2024 at 11:00am) Patient Instructions/Handouts: (DC), (GEN) Activity/Diet/Wound Care/Special Instructions: No intercourse, tampons or tub baths. No driving for two weeks. Call with any fever, shakes or chills, with any pain not alleviated by over the counter meds, or with any questions or concerns. [id number] ibuprofen 600 mg or 3 tablets every 6 hours as needed for pain. Discharge Disposition: HOME SELF-CARE
[2023-12-11 10:55] VITALS: BP 127/82; PULSE 74; TEMP 97.8
== END 2023-12-11 09:20 | disposition home or self-care (01) | DRG 540 ==
LOC: 4FBP 06:15
PROVIDERS: ADMIT Obstetrics & Gynecology Obstetrics; ATTEND Obstetrics & Gynecology Obstetrics
PROC: 10D00Z1 Extraction of Products of Conception, Low, Open Approach (ICD-10-PCS; principal; 2023-12-09 08:00)
DX: O34.211 Maternal care for low transverse scar from previous cesarean delivery (principal); O40.3XX0 Polyhydramnios, third trimester, not applicable or unspecified; Z37.0 Single live birth; Z3A.39 39 weeks gestation of pregnancy
CPT/HCPCS: 85025; 86850; 86900; 86901